=== PATIENT | male | born 1995 | race Caucasian/White ===

== ENCOUNTER 2024-01-12 12:34 | Emergency (ER) | payer BC, SELFPAY ==
[2024-01-12 12:46] VITALS: BP 133/90; PULSE 78; RESP 16; TEMP 37.1; O2SAT 100
--- NOTE | 2024-01-12 12:54 | ED.EYEPROB ---
HPI - Eye Problem General Chief complaint: Eye Problems Stated complaint: Eye Problems Time Seen by Provider: 01/12/24 12:50 Source: patient Mode of arrival: ambulatory Limitations: no limitations History of Present Illness HPI Narrative: Trevor is a 28-year-old male patient presenting to the clinic today with complaints a rash on his eyelids and under his eyes it has been going on for couple weeks. States that he has been trying to apply creams without success. Reports that the rash is itchy and dry. Related Data Allergies Allergy/AdvReac Type Severity Reaction Status Date / Time No Known Allergies Allergy Verified 01/12/24 12:52 Review of Systems Review of Systems: Pertinent positives per HPI. Patient denies any fever, chills, headache, visual changes, dizziness, cough, runny nose, sore throat, shortness of breath, chest pain, palpitations, nausea, vomiting, diarrhea, constipation, abdominal pain, or any urinary issues. PMFSH Comments At the time of my signature, I reviewed and agree with the nursing past medical, surgical, social, and family history. There is no relevant family history pertinent to the patient complaint. Exam Narrative: General: Well-developed, well nourished, in no apparent distress Head: Normocephalic, atraumatic Eyes: Pupils equally round and reactive to light bilaterally, EOM intact, sclera and conjunctive clear, red scaly itchy rash to the top of the eyelids and bottom eyelids, no discharge Ears: TMs intact and clear, ear canals clear, no drainage, grossly hearing normal. Nose: Nares patent, no discharge, no inflammation, no sinus tenderness. Mouth: Oropharynx without lesions or masses, good dentition, MMM. Neck: Supple, trachea midline, no enlargement of anterior or posterior cervical nodes, no thyroid masses or goiter palpable. Cardio: Regular rate and rhythm, s1 and s2 normal, no murmur appreciated. Resp: Clear to auscultation bilaterally anteriorly and posteriorly, no rhonchi, rales, wheezing or rubs Course Course Emergency Course: Portions of this record may have been created with voice recognition software. Level of Care: Express Care Visit Vital Signs Vital signs: Vital Signs Temperature 37.1 C 01/12/24 12:46 Pulse Rate 78 01/12/24 12:46 Respiratory Rate 16 01/12/24 12:46 Blood Pressure 133/90 01/12/24 12:46 Pulse Oximetry 100 01/12/24 12:46 Temperature 37.1 C 01/12/24 12:46 Pulse Rate 78 01/12/24 12:46 Respiratory Rate 16 01/12/24 12:46 Blood Pressure 133/90 01/12/24 12:46 Pulse Oximetry 100 01/12/24 12:46 Vital signs reviewed MDM - Eye Problem MDM Narrative Medical decision making narrative: At the time of visit patient is resting comfortably on the exam table. Patient appears to be nontoxic. Plan: I suspect patient has eyelid dermatitis. Prescription for triamcinolone cream was sent to the pharmacy. Supportive measures were discussed with the patient and they voiced understanding discharge instructions and agrees to treatment plan. Return precautions reviewed Differential Diagnosis Differential diagnosis: Likely corneal abrasion, conjunctivitis, acute iritis, periorbital cellulitis and other (Dermatitis, herpes zoster) Discharge Plan Discharge Clinical Impression: Allergic dermatitis eyelid Patient Disposition: Home, Self-Care Condition: Stable Instructions: Antibiotic Form, Dermatitis (ED) Additional Instructions: Apply triamcinolone cream to the area twice daily x7 days Wash your face with non scented soap Moisturize your face twice daily May take Benadryl as needed for itching Follow-up with your primary care doctor as needed Prescriptions: New triamcinolone acetonide 0.1 % cream 1 applic topical BID 7 Days Qty: 30 0RF Follow-up/Referrals: PHYSICIAN,[employer] SUPERVISOR [Primary Care Provider] - Time of Disposition: 12:53 Quality NIHSS Nursing Documentation ED NIHSS nursing
== END 2024-01-12 12:59 | disposition home or self-care (01) ==
PROVIDERS: Emergency Provider Nurse Practitioner Family
DX: H01.115 Allergic dermatitis of left lower eyelid (principal); H01.114 Allergic dermatitis of left upper eyelid; H01.112 Allergic dermatitis of right lower eyelid; H01.111 Allergic dermatitis of right upper eyelid
CPT/HCPCS: 99213; G0463

== ENCOUNTER 2025-06-10 08:16 | Emergency (ER) | payer OTHER, SELFPAY ==
[2025-06-10 08:30] VITALS: BP 132/88; PULSE 117; RESP 18; TEMP 36.7; O2SAT 100
--- NOTE | 2025-06-10 08:50 | ED_ITS ---
HPI - Chest Pain General Chief Complaint: Chest Pain Stated Complaint: VOMITING/CHEST PAIN Time Seen by Provider: 06/10/25 08:51 Mode of arrival: ambulatory Limitations: no limitations History of Present Illness HPI narrative: 29-year-old male with history of eosinophilic esophagitis presents with concern of for midsternal chest pain, epigastric pain, nausea and vomiting. He reports pain is been for a couple of days, it is intermittent in severity, is somewhat relieved when he is lying down. A few episodes of vomiting started today. He reports he has having normal bowel movements, his last BM was today. He denies URI symptoms. He reports symptoms may worsen with activity. He denies difficulty swallowing or drooling. Denies radiating pain. Denies severe chest pain after vomiting. He denies feeling of food bolus, he reports he is eating normally. MD complaint: chest pain Related Data Allergies Allergy/AdvReac Type Severity Reaction Status Date / Time No Known Allergies Allergy Verified 06/10/25 08:30 Review of Systems Review of Systems: CONSTITUTIONAL: Denies malaise, chills, sweats, or fever. EYES: Denies visual changes, redness, or discharge. ENT: Denies rhinorrhea, congestion, sinus pain, otalgia or sore throat. CARDIOVASCULAR: Denies chest pain, palpitations, or edema. RESPIRATORY: Denies cough or dyspnea. GASTROINTESTINAL: Denies abdominal pain, nausea, vomiting, diarrhea, bloody, or mucous stools. GENITOURINARY: Denies dysuria or hematuria. SKIN: Denies rash or itching. MUSCULOSKELETAL: Denies back pain, joint pain, or myalgia. NEUROLOGIC: Denies numbness, weakness, or headache. PSYCHIATRIC: Denies anxiety or depression. All systems reviewed & are unremarkable except as noted in HPI and below PMFSH Comments At time of signature, agree with nursing past medical, surgical, social and family history. There is no relevant family history pertinent to the presenting complaint Exam Narrative: GENERAL: Well-appearing, well-nourished, and in no acute distress. HEAD: Normocephalic, atraumatic. EYES: PERRLA, sclera clear, and EOMI. No nystagmus. ENT: Nares clear. Mucous membranes moist. NECK: Supple. No lymphadenopathy. CHEST: No respiratory distress. Clear to auscultation. No bony deformities, no asymmetry. Speaks in full sentences. No subcutaneous emphysema HEART: Regular rate and rhythm. No murmur heard. Normal peripheral pulses. ABDOMEN: Soft, mild epigastric tenderness, nondistended, normal active bowel sounds, no palpable masses. EXTREMITIES: Normal range of motion. No edema. Normal strength and sensation. SKIN: Warm, dry, no visible rash. NEURO: Alert and oriented x3. PSYCH: Normal mood and affect Course Course Emergency Course: I discussed transfer to emergency room for further evaluation of patient's symptoms verses being discharged home with follow-up. Patient consulted with his mother, and decided to be discharged home. I will prescribe Zofran and Medrol pack for likely flare of eosinophilic esophagitis. Anticipatory guidance given. Patient agrees to follow-up as directed and is aware of reasons to seek care at the emergency department. Portions of this record may have been created with voice recognition software Level of Care: [facility] Visit Reevaluation(s) Reevaluation #1: Patient denies improvement with GI cocktail. Date: 06/10/25 Time: 09:25 Reevaluation #2: Patient was given Zofran, reports symptoms are slightly improved with Zofran. Date: 06/10/25 Time: 10:20 Vital Signs Vital signs: Vital Signs Temperature 98.1 F 06/10/25 08:30 Pulse Rate 117 H 06/10/25 08:30 Respiratory Rate 18 06/10/25 08:30 Blood Pressure 132/88 06/10/25 08:30 Pulse Oximetry 100 06/10/25 08:30 Oxygen Delivery Room Air 06/10/25 08:30 Temperature 98.1 F 06/10/25 08:30 Pulse Rate 117 H 06/10/25 08:30 Respiratory Rate 18 06/10/25 08:30 Blood Pressure 132/88 06/10/25 08:30 Pulse Oximetry 100 06/10/25 08:30 Oxygen Delivery Room Air 06/10/25 08:30 Reviewed. MDM - Chest Pain MDM Narrative Medical decision making narrative: I evaluated this patient in the [facility] care. History is obtained from patient who is an independent historian and physical exam was performed.? Available medical records were reviewed. ? Exam findings and relevant testing show no acute concerns or changes; patient is non-toxic appearing and is in no distress. ? Differential diagnosis and treatment plan were discussed with the patient. Patient agrees with discussion and after shared medical decision making agrees with plan of care. All questions were answered to the patient's satisfaction. Patient is appropriate for outpatient treatment and follow-up. Differential Diagnosis Differential diagnosis: Likely pneumothorax, atypical chest pain, st elevation myocardial infarction, costochondritis, chest pain and other (Esophagitis flare, GERD, food bolus,) ECG Data EKG #1: ECG completion date: 06/10/25 ECG completion time: 09:48 Interpretation: Rate 82, MI interval 185, QRS duration 97, QT 312, QTC 351, nonspecific T-wave abnormality EKG Interpretation: normal rate and sinus rhythm Critical Care Time Critical Care Time Critical Care Time: No Discharge Plan Discharge Clinical Impression: Epigastric pain Patient Disposition: Home Condition: Stable Instructions: Diet for Stomach Ulcers and Gastritis (ED), Esophagitis (ED) Additional Instructions: 1) Please follow-up with primary care doctor or GI. 2) If you have any worsening of symptoms or any other urgent concerns please go to the ER. 3) Please take medications as prescribed and continue taking your home medications as usual. 4) Please read and follow information included in discharge instructions. Patient Language: Dominican Prescriptions: New methylprednisolone [Medrol (Kem)] 4 mg tablets,dose pack See Rx Instructions .ROUTE .COMPLEX Qty: 21 0RF Rx Instructions: orally per package directions ondansetron 4 mg tablet,disintegrating 4 mg PO Q8H PRN (Reason: nausea and vomiting) Qty: 10 0RF Follow-up/Referrals: Seferino Alanis MD [Physician, Family Practice] PHYSICIAN,DIRECT CARE SPECIALIST [Primary Care Provider, Internal Medicine] Nadeem Nielson MD [Physician, Gastroenterology] Stand Alone Forms: Work/School Release IP Time of Disposition: 10:25
[2025-06-10] MEDS: LIDOCAINE 2% VISC SOLN 15 ML UDC PO (09:11)
[2025-06-10] MEDS: MAG HYDROX/AL HYDROX/SIMETH 30 ML UDC 15 ML PO (09:11)
--- NOTE | 2025-06-10 09:25 | ECG_ITS ---
Test Date: 2025-06-10 09:48:53 Measurements Intervals [place] Rate: 82 P: 35 IL: 185 QRS: 11 QRSD: 97 T: 54 QT: 312 QTc: 366 Interpretive Statements SINUS RHYTHM POSSIBLE LEFT ATRIAL ENLARGEMENT [-0.1mV P WAVE IN V1/V2] POSSIBLE RIGHT VENTRICULAR CONDUCTION DELAY [RSR (QR) IN V1/V2] NONSPECIFIC T-WAVE ABNORMALITY No previous ECG available for comparison Electronically Signed On 06-10-2025 18:05:16 [employer] by Valorie June M.D.
[2025-06-10] MEDS: ONDANSETRON HCL ODT 4 MG TABLET SUBLINGUAL (10:03)
[2025-06-10 10:31] VITALS: PULSE 81; O2SAT 100
== END 2025-06-10 10:31 | disposition home or self-care (01) ==
PROVIDERS: Emergency Provider Nurse Practitioner
DX: R10.13 Epigastric pain (principal); K20.0 Eosinophilic esophagitis
CPT/HCPCS: 93005; 99213; A9270; G0463